=== PATIENT | female | born 1990 | race African-American/Black ===

== ENCOUNTER 2019-09-20 07:04 | Emergency (ER) | payer OTHER ==
[2019-09-20 07:12] VITALS: BP 151/85; PULSE 73; TEMP 98.7; BMI 34.4
--- NOTE | 2019-09-20 07:58 | PDOC ---
*Physical Exam - Vital Signs Last Vital Signs Temp Pulse Resp BP Pulse Ox 98.7 F 73 16 151/85 98 09/20/19 07:10 09/20/19 07:10 09/20/19 07:10 09/20/19 07:10 09/20/19 07:10 Medical Decision Making - Medical Decision Making 09/20/19 07:58 29-year-old female presenting with a complaint of ankle pain s/p twisting ankle 6 days ago. Pain with bearing weight Ankle/foot swelling noted on examination No bruising Pt seen by Midlevel Provider under my direct supervision Pt interviewed and examined Ancillary studies reviewed Xray - no fracture likely sprain will place in air cast Follow up with ortho I agree with plan as outlined by Midlevel Provider 09/20/19 08:21 Discharge - Discharge Information Problems reviewed: Yes Clinical Impression/Diagnosis: Left ankle sprain Qualifiers: Encounter type: initial encounter Involved ligament of ankle: unspecified ligament Qualified Code(s): S93.402A - Sprain of unspecified ligament of left ankle, initial encounter Condition: Stable Disposition: HOME - Admission No - Additional Discharge Information Prescriptions: Ibuprofen 600 mg PO Q8H PRN #20 tablet PRN Reason: pain Leg Brace [Ankle Brace] 1 each MC DAILY #1 each - Follow up/Referral Referrals: Tutu Franks DO [Staff Physician] - - Patient Discharge Instructions Patient Printed Discharge Instructions: DI for Ankle Sprain Additional Instructions: X-ray of the left ankle shows no acute fracture dislocation however x-ray would not show stretch tendon and you will need an MRI for that. Please follow-up with referred orthopedics for reevaluation possible MRI. Take Motrin as needed for pain. Use ankle support brace to help stabilize ankle once orthopedics follow-up - Post Discharge Activity
--- NOTE | 2019-09-20 08:02 | PDOC ---
History of Present Illness - General Chief Complaint: Injury Stated Complaint: ANKLE PAIN Time Seen by Provider: 09/20/19 07:43 History Source: Patient Exam Limitations: Clinical Condition - History of Present Illness Initial Comments: 09/20/19 07:57 Patient with no significant past medical history presented with complaint of pain to lateral aspect of left ankle status post twisting ankle 6 days ago. Patient reported feeling a popping sound to left ankle when she twisted her ankle 6 days ago and has been having intermittent popping sensation to left ankle. Patient report increased pain when she bends left ankle on the lateral side. Patient did not fall or hit her head during injury. Patient has not taken anything for pain as she only has mild pain which is only worsened when she feels a popping sound. Occurred: reports: other (6 days) Past History - Past Medical History Allergies/Adverse Reactions: Allergies Allergy/AdvReac Type Severity Reaction Status Date / Time No Known Allergies Allergy Verified 09/20/19 07:12 Home Medications: Ambulatory Orders Levothyroxine [Synthroid -] 50 mcg PO DAILY 06/12/15 Metronidazole 59 ml TP ASDIR 06/12/15 Montelukast Na [Singulair -] 10 mg PO HS 06/12/15 Naproxen [Naprosyn -] 500 mg PO BID PRN #14 tablet 06/12/15 Shark Liver Oil/Petrolat,Wht [Anusol Ointment] 1 applic RC ASDIR 06/12/15 Ibuprofen 600 mg PO Q8H PRN #20 tablet 09/20/19 Leg Brace [Ankle Brace] 1 each MC DAILY #1 each 09/20/19 Asthma: Yes COPD: No Thyroid Disease: Yes (hypo) Other medical history: osteoperosis - Surgical History Abdominal Surgery: Yes - Psycho Social/Smoking Cessation Hx Smoking Status: No Smoking History: Never smoked Number of Cigarettes Smoked Daily: 0 Hx Alcohol Use: No Drug/Substance Use Hx: No Review of Systems - Review of Systems Able to Perform ROS?: Yes Is the patient limited British proficient: No Constitutional: No: Weakness HEENTM: No: Symptoms Reported Respiratory: No: Symptoms reported, See HPI, Cough, Orthopnea, Shortness of Breath, SOB with Exertion, SOB at Rest, Stridor, Wheezing, Productive cough, Hemoptysis, Other Cardiac (ROS): No: Symptoms Reported, See HPI, Chest Pain, Edema, Irregular Heart Rate, Lightheadedness, Palpitations, Syncope, Chest Tightness, Other ABD/GI: No: Symptoms Reported, See HPI, Abdominal Distended, Abd. Pain w/ defecation, Blood Streaked Bowels, Constipated, Diarrhea, Difficulty Swallowing , Nausea, Poor Appetite, Poor Fluid Intake, Rectal Bleeding, Vomiting, Indigestion, Abdominal cramping, Tarry Stools, Other Musculoskeletal: Yes: Symptoms Reported, See HPI, Joint Pain (left ankle pain), Muscle Pain (lateral aspect of left ankle). No: Joint Swelling, Joint Stiffness Integumentary: No: Symptoms Reported, Bruising, Change in Color Neurological: No: Symptoms reported, Numbness, Paresthesia, Tingling, Weakness All Other Systems: Reviewed and Negative *Physical Exam - Vital Signs Last Vital Signs Temp Pulse Resp BP Pulse Ox 98.7 F 73 16 151/85 98 09/20/19 07:10 09/20/19 07:10 09/20/19 07:10 09/20/19 07:10 09/20/19 07:10 - Physical Exam Comments: 09/20/19 08:00 GENERAL: Well developed, well nourished. Awake and alert. No acute distress. PULMONARY: No evidence of respiratory distress. MUSCULOSKELETAL : mild tenderness over lateral malleolus of left ankle. no swelling or ecchymosis to ankle. negative anterior-posterior drawer test to left ankle. No bony deformities. Ambulating normal with normal gait SKIN: Warm and dry. Normal capillary refill. No swelling, bruising or ecchymosis. NEUROLOGICAL: Alert, awake, appropriate. No motor deficits in the lower extremities. Gait is normal without ataxia. PSYCHIATRIC: Cooperative. Good eye contact. Appropriate mood and affect. General Appearance: Yes: Nourished, Appropriately Dressed. No: Apparent Distress ED Treatment Course - RADIOLOGY Radiology Studies Ordered: Category Date Time Status ANKLE-LEFT [RAD] Stat Radiology 09/20/19 07:47 Ordered Medical Decision Making - Medical Decision Making 09/20/19 07:58 Patient with no significant past medical history presented with complaint of pain to lateral aspect of left ankle status post twisting ankle 6 days ago. Patient reported feeling a popping sound to left ankle when she twisted her ankle 6 days ago and has been having intermittent popping sensation to left ankle. Patient report increased pain when she bends left ankle on the lateral side. Patient did not fall or hit her head during injury. Patient has not taken anything for pain as she only has mild pain which is only worsened when she feels a popping sound. Exam significant for mild point tenderness over lateral malleolus of left ankle. No swelling or ecchymosis to ankle or foot. Negative anterior posterior drawer test of ankle. Symptoms likely ankle sprain versus less likely ankle dislocation. X-ray of left ankle ordered to rule out ankle sprain fracture dislocation 09/20/19 08:48 X-ray of left ankle shows no acute fracture or pathology. Patient symptoms likely ankle sprain. Patient stable for discharge on ankle support brace and Rx for Motrin sent as needed for pain with orthopedics follow-up. Patient is stable for discharge Discharge - Discharge Information Problems reviewed: Yes Clinical Impression/Diagnosis: Left ankle sprain Qualifiers: Encounter type: initial encounter Involved ligament of ankle: unspecified ligament Qualified Code(s): S93.402A - Sprain of unspecified ligament of left ankle, initial encounter Condition: Stable Disposition: HOME - Admission No - Additional Discharge Information Prescriptions: Ibuprofen 600 mg PO Q8H PRN #20 tablet PRN Reason: pain Leg Brace [Ankle Brace] 1 each MC DAILY #1 each - Follow up/Referral Referrals: Tutu Franks DO [Staff Physician] - - Patient Discharge Instructions Patient Printed Discharge Instructions: DI for Ankle Sprain Additional Instructions: X-ray of the left ankle shows no acute fracture dislocation however x-ray would not show stretch tendon and you will need an MRI for that. Please follow-up with referred orthopedics for reevaluation possible MRI. Take Motrin as needed for pain. Use ankle support brace to help stabilize ankle once orthopedics follow-up - Post Discharge Activity
== END 2019-09-20 08:41 | disposition home or self-care (01) ==
LOC: JER 07:04
PROC: 2W3RX3Z Immobilization of Left Lower Leg using Brace (ICD-10-PCS; principal; 2019-09-20)
DX: S93.402A Sprain of unspecified ligament of left ankle, initial encounter (principal); X50.1XXA Overexertion from prolonged static or awkward postures, initial encounter; Y93.89 Activity, other specified; Y92.89 Other specified places as the place of occurrence of the external cause; Y99.8 Other external cause status
CPT/HCPCS: 73610-TC-LT-FY; 99281-25

== ENCOUNTER 2022-01-14 17:50 | Emergency (ER) | payer OTHER ==
[2022-01-14 18:21] VITALS: BP 135/83; PULSE 86; TEMP 98.1; BMI 32.3
[2022-01-14] MEDS ORDERED: IBUPROFEN 600 MG TABLET (FP) PO ONE ×2 (18:58→18:59)
== END 2022-01-14 19:29 | disposition home or self-care (01) ==
LOC: JERFT 17:50
DX: M79.641 Pain in right hand (principal); W22.8XXA Striking against or struck by other objects, initial encounter
CPT/HCPCS: 73110-TC-RT-FY; 73130-TC-RT-FY; 99283-25

== ENCOUNTER 2022-03-15 10:43 | Emergency (ER) | payer OTHER ==
[2022-03-15 10:59] VITALS: BP 121/73; PULSE 75; TEMP 98; BMI 32.3
[2022-03-15] MEDS ORDERED: TETRACAINE 0.5% HCL 0.6ML DROPPER.BOTTLE OS ONE (11:33)
[2022-03-15] MEDS ORDERED: FLUORESCEIN NA 1 EA STRIP OS ONE (11:33)
[2022-03-15] MEDS ORDERED: FLUORESCEIN NA 1 EA STRIP ONE (11:44)
[2022-03-15] MEDS ORDERED: TETRACAINE 0.5% OPHTH SOLN 2 ML BOTTLE ONE (11:44)
[2022-03-15] MEDS ORDERED: ERYTHROMYCIN 0.5% OPHTHALMIC OINTMENT 3.5 GM TUBE OS ONE (11:51)
[2022-03-15] MEDS ORDERED: ERYTHROMYCIN 0.5% OPHTHALMIC OINTMENT 3.5 GM TUBE ONE (11:52)
== END 2022-03-15 11:56 | disposition home or self-care (01) ==
LOC: JERFT 10:43 → JER 10:43 → JERFT 11:56
DX: H00.014 Hordeolum externum left upper eyelid (principal)
CPT/HCPCS: 99283-25

== ENCOUNTER 2022-06-29 20:30 | Emergency (ER) | payer OTHER ==
[2022-06-29 20:44] VITALS: BP 137/82; PULSE 62; RESP 18; TEMP 97.6; BMI 32.9
[2022-06-29] MEDS ORDERED: SODIUM CHLORIDE 0.9% 500 ML INFUS.BAG IV ONE (22:02)
[2022-06-29] MEDS ORDERED: ONDANSETRON 4 MG/2 ML VIAL IVPUSH ONE (22:03)
[2022-06-29] MEDS ORDERED: FAMOTIDINE 20 MG/50 ML IVPB 20 MG/50 ML MG IVPB ONE ×2 (22:15→22:41)
[2022-06-29] MEDS ORDERED: ONDANSETRON 4 MG/2 ML VIAL ONE (22:41)
[2022-06-29 23:03] LABS: HEMATOCRIT 37.1 % (32.4-45.2); HEMOGLOBIN 12.4 GM/dL (10.7-15.3); MCHC 33.3 g/dl (32.0-36.0); MEAN PLT VOLUME 8.7 fl (7.5-11.1); PLATELET COUNT 313 10^3/uL (134-434); RBC 4.12 M/mm3 (3.60-5.2); RDW 12.7 % (11.6-15.6)
[2022-06-29 23:18] LABS: EPI CELLS 2 /uL (0-25.1); HYALINE CASTS 0 /uL (0-3.1); URINE APPEARANCE CLEAR; URINE BACTERIA 72 /uL (0-1359); URINE BILIRUBIN NEGATIVE (NEGATIVE); URINE COLOR YELLOW; URINE GLUCOSE (UA) NEGATIVE (NEGATIVE); URINE KETONE 4+ (NEGATIVE); URINE LEUK ESTERASE NEGATIVE (NEGATIVE); URINE NITRITE NEGATIVE (NEGATIVE); URINE PROTEIN 2+ (NEGATIVE); URINE RBC 56 /uL (0-23.9); URINE UROBILINOGEN 0.2 mg/dL (0.2-1.0); URINE WBC 1 /uL (0-25.8)
[2022-06-29 23:21] LABS: ALBUMIN 4.1 g/dl (3.4-5.0); CALCIUM 8.9 mg/dL (8.5-10.1)
[2022-06-29 23:22] LABS: BLOOD UREA NITROGEN 6.9 mg/dL (7-18)
[2022-06-29 23:24] LABS: CREATININE 0.6 mg/dL (0.55-1.3)
[2022-06-29 23:26] LABS: ANISOCYTOSIS 1+; BILIRUBIN,TOTAL 0.7 mg/dL (0.2-1); MACROCYTOSIS 0; TOT PROT 8.1 g/dl (6.4-8.2)
== END 2022-06-30 00:18 | disposition home or self-care (01) ==
LOC: JER 20:30
PROC: 3E033NZ Introduction of Analgesics, Hypnotics, Sedatives into Peripheral Vein, Percutaneous Approach (ICD-10-PCS; principal; 2022-06-29)
PROC: 3E033GC Introduction of Other Therapeutic Substance into Peripheral Vein, Percutaneous Approach (ICD-10-PCS; 2022-06-29)
DX: K52.9 Noninfective gastroenteritis and colitis, unspecified (principal)
CPT/HCPCS: 0241U-QW; 36415; 80053; 81003; 83690; 84703; 85025; 87077; 87086; 99284-25